=== PATIENT | male | born 1995 | race Caucasian/White ===

== ENCOUNTER 2019-06-16 17:28 | Emergency (ER) | payer OTHER ==
[~2019-06-16] VITALS: Ht 185.4 cm; Wt 85.3 kg
[2019-06-16 17:32] VITALS: BP 149/76; Ht 185.4 cm; Wt 85.3 kg
[2019-06-16 18:11] LABS: BASOPHIL % 1.2 % (0-2); PLATELET COUNT 241 x10^3mcL (130-400); RED CELL DISTRIBUTION WIDTH 12.9 % (11.5-14.5)
[2019-06-16 18:21] LABS: CALCIUM 9.1 mg/dL (8.5-10.1); CARBON DIOXIDE 20.7 mmol/L (21-32); CHLORIDE SERUM 103 mmol/L (98-107); CREATININE SERUM 1.1 mg/dL (0.7-1.3); GFR1 > 60 mL/min; GLUCOSE SERUM 119 mg/dL (74-106); POTASSIUM SERUM 3.1 mmol/L (3.5-5.1); SODIUM SERUM 140 mmol/L (136-145)
[2019-06-16 18:33] LABS: ALBUMIN 4.7 g/dL (3.4-5.0); ALKALINE PHOSPHATASE 56 U/L (46-116); ALT/SGPT 21 U/L (16-63); AST/SGOT 20 U/L (15-37); BILIRUBIN TOTAL 1.7 mg/dL (0.20-1.00); T4(THYROXINE) 11.6 ug/dL (4.7-13.3); TOTAL PROTEIN, SERUM 7.8 g/dL (6.4-8.2)
== END 2019-06-16 19:29 | disposition home or self-care (01) ==
LOC: ED 17:28
PROVIDERS: Emergency Medicine
DX: F41.1 Generalized anxiety disorder (principal); F43.0 Acute stress reaction; R03.0 Elevated blood-pressure reading, without diagnosis of hypertension; F42.9 Obsessive-compulsive disorder, unspecified
CPT/HCPCS: 36415; Q0092

== ENCOUNTER 2019-07-14 20:35 | Emergency (ER) | payer OTHER ==
[~2019-07-14] VITALS: Ht 185.4 cm; Wt 84.8 kg
[2019-07-14 20:43] VITALS: Ht 185.4 cm; Wt 84.8 kg
[2019-07-14 21:15] VITALS: BP 139/82
== END 2019-07-14 21:15 | disposition home or self-care (01) ==
LOC: ED 20:35
DX: G44.209 Tension-type headache, unspecified, not intractable (principal); G89.29 Other chronic pain; M54.2 Cervicalgia; F41.9 Anxiety disorder, unspecified

== ENCOUNTER 2019-07-18 16:08 | Emergency (ER) | payer OTHER ==
[~2019-07-18] VITALS: Ht 185.4 cm; Wt 82.1 kg
[2019-07-18 16:25] VITALS: Ht 185.4 cm; Wt 82.1 kg
[2019-07-18 18:27] LABS: CALCIUM 8.6 mg/dL (8.5-10.1); CARBON DIOXIDE 26.2 mmol/L (21-32); CHLORIDE SERUM 107 mmol/L (98-107); GFR1 > 60 mL/min; GLUCOSE SERUM 93 mg/dL (74-106); POTASSIUM SERUM 3.6 mmol/L (3.5-5.1); SODIUM SERUM 144 mmol/L (136-145)
[2019-07-18 18:32] LABS: ALBUMIN 4.4 g/dL (3.4-5.0); ALKALINE PHOSPHATASE 54 U/L (46-116); ALT/SGPT 32 U/L (16-63); AST/SGOT 19 U/L (15-37); TOTAL PROTEIN, SERUM 7.6 g/dL (6.4-8.2)
[2019-07-18 19:01] LABS: C REACTIVE PROTEIN < 0.2 mg/dL (<=0.9)
[2019-07-18 19:03] LABS: ERYTHROCYTE SED RATE 6 mm/hr (0-15)
[2019-07-18 19:08] LABS: BASOPHIL % 0.2 % (0-2); PLATELET COUNT 219 x10^3mcL (130-400); RED CELL DISTRIBUTION WIDTH 13.4 % (11.5-14.5)
[2019-07-18 20:13] VITALS: BP 109/66
== END 2019-07-18 20:13 | disposition home or self-care (01) ==
LOC: ED 16:08
PROVIDERS: Emergency Medicine
DX: R51 Headache (principal); R42 Dizziness and giddiness; H53.149 Visual discomfort, unspecified; R11.0 Nausea; F41.9 Anxiety disorder, unspecified; F42.9 Obsessive-compulsive disorder, unspecified
CPT/HCPCS: 36415; J1885; J8597

== ENCOUNTER 2019-08-16 02:04 | Emergency (ER) | payer OTHER ==
[~2019-08-16] VITALS: Ht 188 cm; Wt 85.7 kg
[2019-08-16 02:11] VITALS: Ht 188 cm; Wt 85.7 kg
[2019-08-16 04:02] VITALS: BP 124/63
== END 2019-08-16 04:02 | disposition home or self-care (01) ==
LOC: ED 02:04
DX: M94.0 Chondrocostal junction syndrome [Tietze] (principal)
CPT/HCPCS: 36415; J1885